=== PATIENT | female | born 1975 | race Native Hawaiian/Other Pacific Islander ===

== ENCOUNTER 2021-08-13 09:29 | Outpatient (CLI) | payer BC | END 2021-08-13 21:10 | disposition home or self-care (01) | LOC: RESP 09:29 | PROVIDERS: ATTEND Nurse Practitioner Family | DX: I10 Essential (primary) hypertension (principal) | CPT/HCPCS: 93005 ==

== ENCOUNTER 2021-08-14 15:13 | Outpatient (CLI) | payer BC ==
[2021-08-14 15:46] LABS: PLATELET COUNT 304 K/uL (152-353)
[2021-08-14 15:59] LABS: POTASSIUM 3.9 mmol/L (3.6-5.2)
== END 2021-08-14 19:02 | disposition home or self-care (01) ==
LOC: RAD 15:13
PROVIDERS: ATTEND Nurse Practitioner Family
DX: I10 Essential (primary) hypertension (principal)
CPT/HCPCS: 36415; 80053; 85027